=== PATIENT | female | born 1965 | race Caucasian/White ===

== ENCOUNTER 2020-02-05 19:08 | Emergency (ER) | payer MEDICAID ==
[~2020-02-05] VITALS: Ht 157.5 cm; Wt 89.0 kg
[~2020-02-05 19:08] MED LIST: SOMA; TRAMADOL; ULTRAM; XANAX; ZANTAC
[2020-02-05 22:39] LABS: BASOPHILS % 0.1 % (0.0-2.0); EOSINOPHILS % 0.8 % (0.0-5.0); HEMATOCRIT. 39.3 % (36.0-48.0); HEMOGLOBIN. 12.8 g/dL (12.0-16.0); LYMPHOCYTES % 28.1 % (20.0-50.0); MEAN CORPUSCULAR VOLUME 85.8 fL (81.0-99.0); MEAN PLATELET VOLUME 8.4 fl (7.4-10.4); MONOCYTES % 4.4 % (2.0-8.0); NEUTROPHILS % 66.6 % (40.0-76.0); PLATELET 287 x1000/uL (130-400); RED BLOOD CELL COUNT 4.59 mill/uL (4.2-5.4); RED CELL DISTRIBUTION WIDTH 15.2 % (11.6-14.6)
[2020-02-05 22:42] LABS: CHLORIDE 105 mEq/L (98-107)
[2020-02-05 22:45] LABS: INR 0.9; PROTHROMBIN TIME 9.7 sec (9.6-11.0)
[2020-02-06] MEDS ORDERED: IBUPROFEN 600MG TABLET PO ONE
[2020-02-06 00:35] VITALS: BP 130/81
== END 2020-02-06 00:45 | disposition home or self-care (01) ==
LOC: ER 19:08
DX: R07.89 Other chest pain (principal); M54.5 Low back pain; E78.00 Pure hypercholesterolemia, unspecified; E11.9 Type 2 diabetes mellitus without complications; Z88.1 Allergy status to other antibiotic agents; Z79.899 Other long term (current) drug therapy; Z90.89 Acquired absence of other organs
CPT/HCPCS: 36415; 71045; 76705; 80053; 84484; 85025; 99285

== ENCOUNTER 2022-01-18 14:07 | Emergency (ER) | payer MEDICAID ==
[~2022-01-18] VITALS: Ht 157.5 cm; Wt 91.0 kg
[2022-01-18] MEDS ORDERED: IBUPROFEN 600MG TABLET PO STA (17:41)
[2022-01-18] MEDS ORDERED: IBUP-2028 MT (19:37)
[2022-01-18 20:40] VITALS: BP 110/68
== END 2022-01-18 20:50 | disposition home or self-care (01) ==
LOC: ER 15:05
DX: M25.562 Pain in left knee (principal); M25.561 Pain in right knee; E11.9 Type 2 diabetes mellitus without complications; I10 Essential (primary) hypertension; W01.0XXA Fall on same level from slipping, tripping and stumbling without subsequent striking against object, initial encounter; Y93.89 Activity, other specified; Y92.9 Unspecified place or not applicable; Z88.3 Allergy status to other anti-infective agents; Z98.890 Other specified postprocedural states
CPT/HCPCS: 73562; 99283